=== PATIENT | male | born 1970 | race Caucasian/White ===

== ENCOUNTER 2019-08-17 11:57 | Emergency (ER) | payer OTHER, SELFPAY ==
[2019-08-17 11:59] VITALS: BP 156/110; PULSE 65; RESP 28; TEMP 36.4; O2SAT 97; BMI 26.8
--- NOTE | 2019-08-17 12:05 | CT_ITS ---
STUDY: CT CERVICAL SPINE WITHOUT CONTRAST REASON FOR EXAM: Male, 49 years old. Trauma, fell approx 10 feet off ladder hitting head, + LOC, laceration to forehead, not acting appropriately. RADIATION DOSAGE (If Supplied By Facility): CTDIvol = ( 23.97 ) mGy, DLP = ( 510.38 ) mGycm TECHNIQUE: High resolution transaxial imaging was performed without contrast material. Sagittal and coronal images were reconstructed. Individualized dose optimization techniques were used for this CT. COMPARISON: None FINDINGS: Normal craniovertebral junction. Normal anterior atlantoaxial articulation. Normal odontoid process. Normal cervical lordosis. There is grade 1 retrolisthesis at C4-5. Normal vertebral bodies and posterior osseous elements. There is no acute fracture. C2-3: Mild spurring to the left. Mild facet spurring on the left.. Normal central canal and intervertebral neuroforamina. C3-4: Disc bulge. Normal central canal and intervertebral neuroforamina. C4-5: Disc bulge and spurring with left paracentral disc protrusion, series 5 image 84/153. Facet spurring. Mild canal stenosis. Neural foramina are patent. C5-6: Disc bulge. Normal central canal and intervertebral neuroforamina. C6-7: Normal endplates. Normal disc height and morphology. Normal central canal and intervertebral neuroforamina. C7-T1: Normal endplates. Normal disc height and morphology. Normal central canal and intervertebral neuroforamina. Normal visualized soft tissue structures. CT/Spine Cervical without Contras IMPRESSION: No fracture. Degenerative change. Electronically Signed: Dk Brock MD at 12:29 EST , Service support ,
--- NOTE | 2019-08-17 12:07 | CT_ITS ---
STUDY: CT BRAIN WITHOUT CONTRAST REASON FOR EXAM: Male, 49 years old. Trauma, fell approx 10 feet off ladder hitting head, + LOC, laceration to forehead, not acting appropriately. RADIATION DOSAGE (If Supplied By Facility): CTDIvol = ( 44.99 ) mGy, DLP = ( 883.29 ) mGycm TECHNIQUE: Transaxial CT imaging of the brain was performed without administration of intravenous contrast material. Individualized dose optimization techniques were used for this CT. COMPARISON: No relevant priors. FINDINGS: There is frontal soft tissue swelling and injury. Normal calvarium. Normal size ventricles and extra-axial spaces for the patient''s age. Normal white matter tracts of the cerebral hemispheres. Normal basal ganglia and thalami. Normal brainstem. Normal cerebellum. There is no intracranial hemorrhage. There are no findings of an acute ischemic infarction. Normal visualized paranasal sinuses. CT/Brain/Head without Contrast IMPRESSION: Normal unenhanced CT scan of the brain. Soft tissue swelling and injury. Electronically Signed: Dk Brock MD at 12:36 EST , Service support ,
--- NOTE | 2019-08-17 12:15 | RAD_ITS ---
STUDY: X-RAY CHEST REASON FOR EXAM: Male, 49 years old. patient was found unconscious this am TECHNIQUE: PA and lateral views of the chest were obtained. COMPARISON: None. FINDINGS: The lungs are clear and expanded. There is no demonstrated pleural abnormality. Normal size heart. Normal mediastinum and helio. Normal visualized pulmonary arteries. Normal visualized aortic arch and descending thoracic aorta. Normal visualized thoracic spine. Normal visualized ribs, clavicles, and shoulders. There is no demonstrated abnormality of the visualized soft tissue structures of the upper abdomen. RAD/Chest PA and Lateral IMPRESSION: Normal x-ray examination of the chest. Electronically Signed: Saroj Rapp, at 12:48 EST Tel , Service support ,
[2019-08-17] MEDS: Ondansetron 4 MG/2 ML Vial IV (12:23)
[2019-08-17] MEDS: Morphine 4 MG/ML Syringe IV (12:27)
[2019-08-17] MEDS: 0.9% Normal Saline 1,000 ML 150 ML IV (12:31)
[2019-08-17 13:00] VITALS: BP 129/74; PULSE 69; RESP 16; O2SAT 99
--- NOTE | 2019-08-17 13:19 | ED.VISSUMM ---
- ER Visit Summary Date of Service: 08/17/19 Chief Complaint: Fall History of Present Illness: The patient is a [address] Chicas. Patient fell approximately 10 feet from a ladder 1 hour ago. He hit his head and had a loss of consciousness for approximately 5 minutes. He reports that he has right-sided chest pain is 10 on 10 severity. He denies any neck, back, or extremity pain. Last tetanus is within the past 5 years. Physical Examination: Vitals: Stable. Afebrile. Head: 5 cm T-shaped laceration in the middle of his forehead with mild active bleeding and surrounding hematoma. No quesada sign or raccoon's eyes. Neck: Mild diffuse tenderness palpation over his cervical spine. No point tenderness. Full ROM without difficulty. Back: No vertebral tenderness. General: A&O x 3. NAD. Cardiovascular exam: Regular rate and rhythm, no murmur, rub or gallop. Respiratory exam: Moderate tenderness palpation of the lower ribs on the right. He does have pain with anterior posterior compression of his chest. No crepitus. Clear to auscultation bilaterally. No wheezes or stridor. Abdominal exam: Soft, nontender, nondistended, normal bowel sounds. No pain in RUQ or LUQ specifically. No peritoneal signs. Extremity: Atraumatic. No pain with range of motion. Test Results: Clinical Impression(s) from Imaging Studies Cervical Spine CT 08/17/19 12:05 IMPRESSION: No fracture. Degenerative change. Electronically Signed: Dk Brock MD at 12:29 EST , Service support , Brain CT 08/17/19 12:07 IMPRESSION: Normal unenhanced CT scan of the brain. Soft tissue swelling and injury. Electronically Signed: Dk Brock MD at 12:36 EST , Service support , Chest X-Ray 08/17/19 12:15 IMPRESSION: Normal x-ray examination of the chest. Electronically Signed: Saroj Rapp at 12:48 EST Tel , Service support , Emergency Department Course and Treatment: Patient was given morphine and Zofran for his pain. He had his wound anesthetized and repaired. He tolerated this well. Treatment Plan: Patient will be discharged with instructions to follow-up with Dr. Chicas in 1 week if not improving. Given a prescription for [place] and Zofran. Disposition: To home in improved and stable condition. Impression: 1. Fall. 2. Concussion. 3. Forehead laceration, 5 cm, repaired. 4. Clinical rib fractures on right. Procedure note: Wound was cleansed with chlorhexidine soap. Anesthetized with 1% lidocaine without epinephrine. Copiously irrigated with normal saline. Wound was explored there is no foreign material present. It was closed with 9 simple interrupted 5-0 rapid Vicryl sutures. The patient tolerated it well. This note was generated with [employer] dictation software. It may contain incorrect words, spelling, and punctuation that were not noted in review of the chart prior to signing ED Disposition - Plan for ED Patient: Disposition: Home or Assisted Living Instructions: HEAD INJURY, No Wake-Up (Adult), LACERATION, Face (Suture or Tape), RIB: CONTUSION vs MINOR FRACTURE Prescriptions: Hydrocodone Bitart/Apap 5-325 [[place] 5MG-325MG] 1 tab PO Q4H PRN PRN 2 Days #10 tab PRN Reason: Pain Prescription Printed Ondansetron [Zofran Odt] 4 mg PO Q8H PRN PRN #10 tab PRN Reason: Nausea Prescription Printed Referrals: Cecil Chicas DO [Primary Care Provider] - 1 Week if not improving
[2019-08-17 13:40] VITALS: BP 127/73; PULSE 71; RESP 16; O2SAT 98
== END 2019-08-17 13:47 | disposition home or self-care (01) ==
LOC: ED 12:18
PROVIDERS: Emergency Provider Emergency Medicine; PCP Family Medicine
DX: S06.0X1A Concussion with loss of consciousness of 30 minutes or less, initial encounter (principal); S01.81XA Laceration without foreign body of other part of head, initial encounter; S22.41XA Multiple fractures of ribs, right side, initial encounter for closed fracture; W11.XXXA Fall on and from ladder, initial encounter; Z72.0 Tobacco use
CPT/HCPCS: 12013; 70450; 71046; 72125; 96361; 96374; 96375; 99285; J7030; A4216; J2405

== ENCOUNTER 2022-05-07 15:57 | Emergency (ER) | payer OTHER, SELFPAY ==
[2022-05-07 15:59] VITALS: BP 137/119; PULSE 70; RESP 16; TEMP 36.9; O2SAT 96; BMI 31.4
--- NOTE | 2022-05-07 16:06 | RAD_ITS ---
EXAM: XR RIGHT SHOULDER COMPLETE, 2 OR MORE VIEWS CLINICAL INDICATION: INJURY TECHNIQUE: Two or more views of the right shoulder. This report was created using AFTER-MOUSE report generation technology. COMPARISON: None. FINDINGS: BONES/JOINTS: No acute abnormality. SOFT TISSUES: Normal. No soft tissue swelling or gas. No radiopaque foreign body. RAD/Shoulder min 2 Views IMPRESSION: Intact right shoulder. Electronically Signed: Douglas Monzon MD at 16:15 EST ,
--- NOTE | 2022-05-07 18:49 | ED.VIS.FALL ---
HPI HPI - Fall History of Present Illness Chief Complaint: Fall Informant: patient Occured/Mechanism Occurred: Yesterday Narrative: Patient fell approximately 4 feet from a ladder Pain/Injury Location: Right shoulder Quality of Pain: Aching Worsened by: Movement Relieved by: Rest Associated Symptoms Associated Symptoms: Negative for Parasthesias, Weakness, Loss of function, Inability to ambulate, Loss of consciousness or Amnesia Narrative Narrative: Patient presents with right shoulder pain that began after a fall last evening. Patient states he fell approximately 4 feet off of a ladder. Patient states he just missed a step. Patient states he landed on his right shoulder. Patient describes the pain as aching. Patient states it is worse with certain movements. Patient denies any paresthesias or weakness. Patient denies any head injury or loss of consciousness. Patient denies any other injuries. Patient states his last tetanus was within 5 years. Tetanus Immunization: <5 years PFSH PFSH Medical History no medical history no medical history Home Medications naproxen 500 mg tablet 500 mg PO BID PRN #20 tabs 05/07/22 [Rx Last Taken Unknown] Allergy/AdvReac Type Severity Reaction Status Date / Time No Known Allergies Allergy Verified 05/07/22 15:57 Surgical History no surgical history no surgical history Social History Smoking Status: Current some day smoker tobacco type: cigars ROS ROS ED Constitutional Constitutional ED: Denies chills or fever(s) Eyes Eyes: Denies blurry vision or change in vision ENT ENT ED: Denies rhinorrhea or sore throat Cardiovascular Cardiovascular: Denies chest pain or palpitations Respiratory/Chest Respiratory/Chest: Denies cough or dyspnea Gastrointestinal Gastrointestinal: Denies nausea or vomiting Genitourinary Genitourinary ED: Denies dysuria or hematuria Musculoskeletal Musculoskeletal: Denies back pain or neck pain Integumentary Denies abscess or rash Neurologic Neurologic: Denies headache(s) or weakness Allergic/Immunologic Allergic/Immunologic ED: Denies mouth swelling or urticaria EXAM Physical Exam Const Vital Signs: 05/07/22 15:59 Temperature 98.4 F Temperature Source Temporal Pulse Rate 70 Respiratory Rate 16 Blood Pressure 137/119 H Blood Pressure Mean 125 Pulse Ox 96 Oxygen Delivery Method Room Air Positive well nourished and well developed General Appearance ED: well developed and NAD HEENT Reports normocephalic and TM's normal bilaterally Neck full ROM and supple Chest Wall inspection of chest normal and palpation of chest normal Resp normal respiratory effort and clear to auscultation bilaterally Cardio regular rate and regular rhythm GI non-tender Palpation: soft Extremity Extremity Narrative: There is tenderness, edema, and ecchymosis over the right shoulder. There is a superficial abrasion over the posterior aspect of the right shoulder. There is no active bleeding noted. Range of motion was limited in all motions of the right shoulder secondary to pain. Radial pulses are equal bilaterally. Sensation was intact to light touch in the radial, median, and ulnar areas. Strength is 5/5 in the radial, median, and ulnar areas. Neuro oriented x3, CN's II-XII intact bilaterally, moves all extremities, no focal motor deficits and no sensory deficits noted Sensorium / Orientation: alert Motor Exam: strength 5/5 throughout Psych mental status grossly normal and thought process normal MDM MDM MDM Narrative Medical decision making narrative: X-rays of the right shoulder were obtained. There are 4 views. On my interpretation, there is no acute fracture. There is no dislocation. Radiologist also interpreted the x-rays and agrees. Patient was advised of his findings. Patient was given a sling for comfort. Patient was given a prescription for Naprosyn. Patient was instructed to use ice to the area. Patient was instructed to follow-up with his primary care physician in 5 to 7 days. Patient understood and was agreeable with the plan. All questions were answered. Radiography Diagnostic Testing: Clinical Impression(s) from Imaging Studies Shoulder X-Ray 05/07/22 16:06 IMPRESSION: Intact right shoulder. Electronically Signed: Douglas Monzon MD at 16:15 EST , Discharge Plan Triage Chief Complaint: Fall ED Provider: David Morse Dx/Rx/DC Orders Clinical Impression: Contusion of right shoulder, initial encounter, Fall Instructions: ED Contusion, Upper Extremity Prescriptions: New naproxen 500 MG tablet 500 mg PO BID PRN Qty: 20 0RF Primary Care Provider: Cecil Chicas Referrals: Cecil Chicas DO [Primary Care Provider] - 5-7 Days Disposition Disposition: Home, Self Care
[2022-05-07] MEDS: Naproxen 250 MG Tablet 500 MG PO (19:13)
[2022-05-07 19:18] VITALS: BP 145/88; PULSE 68; RESP 18; O2SAT 98
== END 2022-05-07 19:49 | disposition home or self-care (01) ==
PROVIDERS: Emergency Provider Emergency Medicine; PCP Family Medicine; Visit Provider Emergency Medicine
DX: S40.011A Contusion of right shoulder, initial encounter (principal); F17.290 Nicotine dependence, other tobacco product, uncomplicated; W11.XXXA Fall on and from ladder, initial encounter
CPT/HCPCS: 73030; 99283